=== PATIENT | male | born 1935 | race Caucasian/White ===

== ENCOUNTER → 2017-09-05 | Outpatient (CLI) | payer OTHER ==
--- NOTE | ~2017-09-05 | EKG ---
[address] [address] ELECTROCARDIOGRAM REPORT Name: SANDRA BACH Room #: REG CLI Anthony#: [id number] Admission: 09/05/17 Attend Phys: Alonso Vazquez MD, F Discharge: Date of : 35 Report #: [id number] THIS REPORT FOR: //name// [facility] Test Date: 2017-09-05 Test Time: 11:26:57 Pat Name: SANDRA BACH Department: Room: Gender: Industrial Sales Representative: Irene : 1935 Requested By: Alonso Vazquez Order Number: [id number] MD: Sebastian Mccarty Measurements Intervals [place] Rate: 65 P: -25 RI: 193 QRS: 2 QRSD: 89 T: 54 QT: 416 QTc: 433 Interpretive Statements Sinus rhythm No previous ECG available for comparison Electronically Signed On 09-05-2017 17:39:15 CDT by Sebastian Mccarty [email or web address] <ELECTRONICALLY SIGNED> By: Sebastian Mccarty MD 09/05/17 1739 [id number] Sebastian Mccarty MD /KARO
[2017-09-05 10:55] LABS: HEMATOCRIT 46.1 % (42.0-52.0); HEMOGLOBIN 15.9 gm/dL (14.0-18.0); MANUAL DIFF YES; MCH 32.9 pg (26.0-34.0); MCHC 34.5 g/dL (28.0-37.0); MCV 95.3 fL (80.0-100.0); PLATELET COUNT 192 thou/uL (150-400); RBC 4.84 mil/uL (4.50-6.00); RDW 14.6 % (10.5-14.5); WBC 7.6 thou/uL (4.0-11.0)
[2017-09-05 11:11] LABS: CALCIUM 9.4 mg/dL (8.5-10.1); CREATININE 1.1 mg/dL (0.7-1.3); POTASSIUM 4.4 mmol/L (3.5-5.1)
[2017-09-05 11:28] LABS: ABSOLUTE NEUTROPHILS 4.6 thou/uL (1.4-8.2); PLATELET ESTIMATE NORMAL; TOTAL CELL COUNT 100
== END ==
LOC: RAD 10:30
PROVIDERS: Surgery
DX: Z01.818 Encounter for other preprocedural examination (principal)

== ENCOUNTER 2017-09-27 05:11 | Day surgery (SDC) | payer OTHER ==
[~2017-09-27] VITALS: Ht 175.3 cm; Wt 74.8 kg
--- NOTE | ~2017-09-27 | O ---
[facility] [place] [address] OPERATIVE REPORT Name: SANDRA BACH Room #: DEP [facility]#: [id number] Admission: 09/27/17 Attend Phys: Alonso Vazquez MD, F Discharge: 09/27/17 Date of : 35 Report #: [id number] THIS REPORT FOR: //name// CC: Alonso BRAN MD DATE OF SERVICE: 09/27/2017 PREOPERATIVE DIAGNOSIS: Recurrent left inguinal hernia, possible recurrent right inguinal hernia. POSTOPERATIVE DIAGNOSIS: Recurrent bilateral inguinal hernias. SURGEON: Alonso Vazquez M.D. CASHIER WRAPPER: Godfrey Bang M.D. PROCEDURE: Laparoscopic totally extraperitoneal (TEP) repair of recurrent bilateral inguinal hernias with ProGrip mesh. ANESTHESIA: General endotracheal anesthesia and local anesthetic. ESTIMATED BLOOD LOSS: 5 mL. SPECIMEN: None. COMPLICATIONS: None appreciated. INDICATIONS FOR PROCEDURE: This is an 82-year-old male patient who presents with a bulge in his left inguinal canal over the past several weeks. He had pain with this several weeks ago when it was noted to be larger. He has a history of an open left inguinal hernia repair approximately 20 years ago with a subsequent open right inguinal hernia repair 8 years ago. His last colonoscopy was in July 2011. The patient denies any change in his bowel activity and denies difficulty with urination. Exam revealed a left inguinal bulge with a smaller right inguinal bulge. The patient presents now for laparoscopic repair of his recurrent left inguinal hernia, possible repair of a recurrent right inguinal hernia. OPERATIVE FINDINGS: Upon entrance into the preperitoneal space, the patient was found to have a recurrent left inguinal hernia as well as a smaller recurrent right inguinal hernia. Both hernias were indirect with no evidence for direct or femoral hernias. After placement of the mesh, each defect was covered with good overlap and good medialization of the mesh. No other significant pathology was seen in the preperitoneal space. [address] [address] OPERATIVE REPORT Name: ISREALSANDRA Jessica Room #: DEP [facility]#: [id number] Admission: 09/27/17 Attend Phys: Alonso Vazquez MD, F Discharge: 09/27/17 Date of : 35 Report #: [id number] DESCRIPTION OF PROCEDURE IN DETAIL: After the risks, benefits, and expectations of the operation were discussed in detail with the patient, informed consent was obtained. The patient was identified in the preoperative holding area. He was given IV antibiotics and he was taken to the operating room where he was placed in the supine position. SCDs were placed on the patient's bilateral lower extremities and pneumatic compression was initiated. The patient was then given IV sedation and he was intubated without incident. His abdomen and genitalia were prepped and draped in the standard sterile fashion. A time-out was then performed to identify the correct patient and procedure. Local anesthetic was infiltrated into the skin and subcutaneous tissue in the left infraumbilical area where a curvilinear incision was made with a #15 blade scalpel. Dissection was carried down to the left anterior rectus sheath fascia. The fascia was opened transversely. The underlying rectus abdominis muscle was identified. It was swept laterally exposing the underlying peritoneum. The Spacemaker port was then advanced within the preperitoneal space with gentle sweeping motions toward the pubic symphysis. The obturator was removed. The Spacemaker balloon was then inflated under direct visualization with the 0-degree angled laparoscope. The scope was then removed and the balloon was deflated and removed. The cuff was inflated. A 30-degree angled laparoscope was inserted with insufflation of the preperitoneal space to 15 mmHg with carbon dioxide. The patient was placed in the Trendelenburg position. 5 mm ports times 2 were placed in the lower midline under direct visualization after local anesthetic was infiltrated into the skin and subcutaneous tissue and appropriately-sized incisions were made. Findings were as noted above. The patient's left preperitoneal space was explored first. The peritoneum was dissected off of the left anterior and left lateral abdominal wall with traction and electrocautery. The spermatic cord was then identified after finding the pubic tubercle. The spermatic cord was from the hernia sac and while doing so, a small rent was made in the hernia sac. The hernia sac was dissected off of the spermatic cord as well as a cord lipoma that was reduced out of an indirect inguinal hernia defect. Spermatic cord was completely skeletonized. The contents had been fully reduced from the indirect inguinal hernia defect. There was no evidence for a direct or femoral hernia. The inferior epigastric vessels had been identified. The ProGrip mesh was then tailored on the backtable and rolled and placed within the preperitoneal space through the Spacemaker port. The mesh was unrolled with the adherent side anteriorly in a scroll-down fashion. There was good coverage of the defect with the medial edge of the mesh near the midline. There was minimal ripping of the mesh. Exploration and repair was then undertaken on the right side in a similar fashion. The peritoneum was dissected off of the abdominal wall. The recurrent indirect inguinal hernia sac was then identified and dissected off of the spermatic cord. The pubic tubercle and inferior epigastric vessels had also [address] [address] OPERATIVE REPORT Name: SANDRA BACH Room #: DEP [facility]#: [id number] Admission: 09/27/17 Attend Phys: Alonso Vazquez MD, F Discharge: 09/27/17 Date of : 35 Report #: [id number] been identified. A rent was present in the peritoneum and this was clipped to protect the mesh from intraperitoneal content. The rent on the left side had been clipped as well. After fully dissecting the hernia content of the recurrent indirect hernia defect, ProGrip mesh was again tailored on the backtable, then rolled and placed within the preperitoneal space through the Spacemaker port. The mesh was unrolled in a scroll-down fashion with good coverage of the defect and good medialization of the mesh. There was minimal ripping of the mesh on the right side as well. No other significant pathology was identified. The ports were removed and the preperitoneal space was desufflated. A small amount of pneumoperitoneum had occurred during the dissection. A 5 mm Visiport was placed intraperitoneally through the infraumbilical fascial opening through the peritoneum and the abdominal cavity was desufflated. The port was then removed. Interrupted [id number] PDS sutures were then used to close the left anterior rectus fascial defect. Local anesthetic was infiltrated subfascially. The wounds were then closed with interrupted subcuticular 4-0 Monocryl sutures and Dermabond. The patient tolerated the procedure well. He was awakened, extubated, and taken to recovery room in stable condition with no apparent intraoperative complications. <ELECTRONICALLY SIGNED> By: Alonso Vazquez MD, FACS 09/29/17 0952 [id number] Alonso Vazquez MD, FACS /nt
[~2017-09-27 05:11] MED LIST: ALLOPURINOL 10100 M1 PO; ANTIVERT25 MG PO; ASPIR 8181 M1 PO; AZOR 5-20 MG T1 EACH PO; FINASTERIDE5 MG PO; PREVACID15 MG PO; VITAMIN B-12500 MCG PO; VITAMIN D-32000 UNIT PO; ZOCOR20 MG PO
[2017-09-27 07:38] VITALS: BP 154/88
[2017-09-27] MEDS ORDERED: SENEXON-S TABL1 EACH PO (09:52)
[2017-09-27] MEDS ORDERED: HYDROCODONE-AP1 EAC6 PO (09:52)
[2017-09-27 10:25] VITALS: BP 154/88
== END 2017-09-27 11:15 | disposition home or self-care (01) ==
LOC: OR 05:11 → TBA 05:12 → OR 11:15
DX: K40.21 Bilateral inguinal hernia, without obstruction or gangrene, recurrent (principal); I10 Essential (primary) hypertension; M10.9 Gout, unspecified; N40.0 Benign prostatic hyperplasia without lower urinary tract symptoms; K21.9 Gastro-esophageal reflux disease without esophagitis; M19.90 Unspecified osteoarthritis, unspecified site; Z86.73 Personal history of transient ischemic attack (TIA), and cerebral infarction without residual deficits; Z85.828 Personal history of other malignant neoplasm of skin; Z98.41 Cataract extraction status, right eye; Z98.42 Cataract extraction status, left eye; Z96.641 Presence of right artificial hip joint; Z79.82 Long term (current) use of aspirin; Z79.899 Other long term (current) drug therapy; Z88.8 Allergy status to other drugs, medicaments and biological substances; Z87.891 Personal history of nicotine dependence; Z98.890 Other specified postprocedural states
CPT/HCPCS: 50010; 50101; 50249; 50411; 50555; 50944; 51824; 52265; 52266; 54118; 54169; 55245; 56524; 56525; 56526; 56639; 62110; 62900; 70005

== ENCOUNTER → 2017-10-30 | Outpatient (CLI) | payer OTHER ==
[~2017-10-30] MED LIST changes: +HYDROCODONE-AP1 EAC6 PO; +SENEXON-S TABL1 EACH PO
[2017-10-30 11:42] LABS: CREATININE 1.1 mg/dL (0.7-1.3)
== END ==
LOC: CAT 11:05
PROVIDERS: Surgery
DX: N40.0 Benign prostatic hyperplasia without lower urinary tract symptoms (principal); N28.1 Cyst of kidney, acquired; K57.30 Diverticulosis of large intestine without perforation or abscess without bleeding; N50.89 Other specified disorders of the male genital organs; K40.91 Unilateral inguinal hernia, without obstruction or gangrene, recurrent; I70.0 Atherosclerosis of aorta; N32.89 Other specified disorders of bladder; N43.3 Hydrocele, unspecified; M48.061 Spinal stenosis, lumbar region without neurogenic claudication; M43.16 Spondylolisthesis, lumbar region